=== PATIENT | male | born 1975 | race African-American/Black ===

== ENCOUNTER 2016-11-21 10:32 | Day surgery (SDC) | payer OTHER ==
[~2016-11-21] VITALS: Ht 177.8 cm; Wt 85.0 kg
[~2016-11-21 10:32] MED LIST: BP MED
[2016-11-21 11:47] LABS: HEMATOCRIT 42.6 % (38.0-50.0); MCH 27.1 PG (29.0-34.0); MCHC 32.9 G/DL (30.0-36.0); MCV 82.6 FL (86-99); MEAN PLAT.VOLUME 9.7 uM^3 (9.0-12.4); PLATELET COUNT 221 K/uL (156-360); RBC DIS.WIDTH-CV 11.9 % (11.8-14.6); RBC DIS.WIDTH-SD 35.8 % (39-53); RED BLOOD COUNT 5.16 M/uL (4.00-5.50); WHITE BLOOD COUNT 5.8 K/uL (4.1-10.2)
[2016-11-21 11:54] LABS: ADD MIUA? NO; BILIRUBIN NEGATIVE; BLOOD NEGATIVE; COLOR YELLOW ((YELLOW)); GLUCOSE (STRIP) NEGATIVE; KETONES NEGATIVE; LEUKOCYTES NEGATIVE; NITRITE NEGATIVE; PROTEIN (STRIP) NEGATIVE; UCUL ADDED? NO; UROBILINOGEN 0.2 MG/DL (0.2-1.0)
[2016-11-21 11:55] LABS: CHLORIDE 106 mEq/L (99-109); POTASSIUM 4.3 mEq/L (3.7-5.4); SODIUM 143 mEq/L (136-147)
[2016-11-21 11:58] LABS: GLUCOSE 101 mg/dL (70-99)
[2016-11-21 11:59] LABS: ANION GAP 9 MEQ/L (2-14)
[2016-11-21 12:01] LABS: ALKALINE PHOSPHATASE 59 IU/L (3-129); GFR ESTIMATE (CALCULATED) > 59 mL/min/
[2016-11-21 12:02] LABS: UREA NITROGEN (BUN) 15 mg/dL (9-23)
[2016-11-21] MEDS ORDERED: AMLODIPINE BESY10 MG PO (12:33)
[2016-11-21] MEDS ORDERED: IBUPROFEN800 MG PO (12:34)
[2016-11-21] MEDS ORDERED: PROAIR HFA8.5 GM IH (12:35)
[2016-11-21] MEDS ORDERED: HYDROCODON-ACE1 EAC7 PO (17:26)
[2016-11-21 18:15] VITALS: BP 127/83
[2016-11-21 20:40] VITALS: BP 108/64
[2016-11-22 00:05] VITALS: BP 114/72
[2016-11-22 04:17] VITALS: BP 105/66
[2016-11-22 08:00] VITALS: BP 115/72
[2016-11-22 12:00] VITALS: BP 138/78
[2016-11-22 12:24] LABS: HEMATOCRIT 37.5 % (38.0-50.0); MCH 27.3 PG (29.0-34.0); MCHC 32.8 G/DL (30.0-36.0); MCV 83.3 FL (86-99); MEAN PLAT.VOLUME 9.9 uM^3 (9.0-12.4); PLATELET COUNT 202 K/uL (156-360); RBC DIS.WIDTH-SD 36.6 % (39-53)
[2016-11-22 12:26] LABS: WHITE BLOOD COUNT 8.7 K/uL (4.1-10.2)
[2016-11-23 09:57] LABS: HEMATOCRIT 36.6 % (38.0-50.0); MCH 27.5 PG (29.0-34.0); MCHC 31.4 G/DL (30.0-36.0); MEAN PLAT.VOLUME 10.6 uM^3 (9.0-12.4); PLATELET COUNT 210 K/uL (156-360); RBC DIS.WIDTH-CV 12.4 % (11.8-14.6); RBC DIS.WIDTH-SD 39.8 % (39-53); RED BLOOD COUNT 4.18 M/uL (4.00-5.50)
[2016-11-23 09:59] LABS: MCV 87.6 FL (86-99)
== END 2016-11-22 16:02 | disposition home or self-care (01) ==
LOC: EME 10:32 → SDC 15:59 → 2SOUTH 17:09 → 2EAST 17:09
PROVIDERS: Surgery
PROC: 0DTJ4ZZ Resection of Appendix, Percutaneous Endoscopic Approach (ICD-10-PCS; principal; 2016-11-21)
DX: K35.80 Unspecified acute appendicitis (principal); K38.1 Appendicular concretions; I10 Essential (primary) hypertension
CPT/HCPCS: 80053; 81003; 85027; 88304; 99281; 99285; G0378; J0131; J1170; J1885; J2250; J2405; J2543; J2710; J3010; J7030; J7120